=== PATIENT | female | born 1970 | race African-American/Black ===

== ENCOUNTER 2018-04-21 15:32 | Emergency (ER) | payer OTHER ==
[~2018-04-21] VITALS: Ht 160 cm; Wt 72.6 kg
--- NOTE | 2018-04-21 15:29 | Emergency Room Report ---
History of Present Illness General Source: Patient Present Illness HPI Patient is a 48-year-old female brought in by EMS for medical clearance. Patient had reportedly had increased abdominal pain. Patient was currently in police custody.Patient had stated that she had been 9 months and delivered a baby. She denies any vomiting or diarrhea. Patient was reportedly under arrest for grand theft. Allergies: Coded Allergies: No Known Allergies (Unverified , 04/21/18) Patient History Reviewed Nursing Documentation: PMH: Agreed; PSxH: Agreed Review of Systems All Other Systems: limited - by poor historian Physical Exam General Appearance: alert, obese, Chronically Ill Head: normocephalic ENT: hearing grossly normal Respiratory: lungs clear Cardiovascular #1: normal inspection Gastrointestinal: normal inspection Musculoskeletal: normal inspection Neurologic: normal inspection, alert, responsive Medical Decision Making Diagnostic Impression: Primary Impression: Medical clearance for incarceration ER Course Patient presented for medical clearance. Differential diagnosis include was not limited to substance abuse, psychosis, malingering among others. Patient has a benign exam and does not appear to require any further imaging or laboratory testing at this time. Patient was noted to have some bizarre behavior and urine drug screen was noted to be positive for cocaine. Patient was given medications due to agitation. Patient is medically cleared for booking. Status: improved Disposition: D/C TO LAW ENFORCEMENT IN CUST Condition: Stable Scripts No Active Prescriptions or Reported Meds Brendan Kwong MD Apr 21, 2018 15:29
--- NOTE | 2018-04-21 15:35 | NUR ---
ED Nurse Note: PAtient brought in by ambulance RA [id number] with [employer] for medical clearance. patient is in custody, c/o abdominal pain.
[2018-04-21] MEDS ORDERED: Haloperidol 5mg/ml Inj ONE (16:18)
--- NOTE | 2018-04-21 16:18 | NUR ---
ED Nurse Note: Received verbal order from Dr Kwong to give patient IM haldol
[2018-04-21] MEDS ORDERED: Haloperidol 5mg/ml Inj IM ONE (17:30)
[2018-04-21 19:01] VITALS: BP 154/88
--- NOTE | 2018-04-21 19:19 | NUR ---
HAND-OFF: Report given to Trevor celaya. waiting for other [employer] unit to come.
[2018-04-21 20:14] VITALS: BP 154/88
--- NOTE | 2018-04-21 20:15 | NUR ---
ER DISCHARGE NOTE: Patient is cleared to be discharged per ERMD, pt is aox4, on room air, with stable vital signs. pt was given dc and prescription instructions, pt was able to verbalize understanding, pt id band and iv site removed without complications. pt is able to ambulate with steady gait. pt took all belongings. Patient left in custody of [employer]
== END 2018-04-21 20:15 | disposition home or self-care (01) ==
LOC: EDBD 15:32 → EMR 16:00
DX: O26.893 Other specified pregnancy related conditions, third trimester (principal); Z3A.36 36 weeks gestation of pregnancy; R10.9 Unspecified abdominal pain; R78.2 Finding of cocaine in blood; F91.9 Conduct disorder, unspecified
CPT/HCPCS: 80307; 81025; 96372; 99283; J1630